=== PATIENT | female | born 1980 | race Caucasian/White ===

== ENCOUNTER 2017-04-18 16:25 | Inpatient (IN) | payer MEDICAID ==
[2017-04-18 19:00] VITALS: BP 112/67
[2017-04-18 21:45] LABS: BASOPHILS 0.1 % (0-2); EOSINOPHILS 0.7 % (0-7); HEMATOCRIT 41.4 % (36.0-48.0); IMMATURE GRANULOCYTES 0.2 % (0-5); LYMPHOCYTES 19.3 % (15-50); MCH 34.5 pg (26.0-34.0); MCHC 36.2 g/dL (31.0-37.0); MCV 95.2 fL (80.0-100.0); MEAN PLATELET VOLUME 9.2 fL (7.4-10.4); MONOCYTES 8.3 % (2-11); NEUTROPHILS 71.4 % (40-80); PLATELET COUNT 222 10x3/uL (130-400); RBC 4.35 10x6/uL (4.00-5.40); RDW 11.5 % (11.5-14.5); WBC 13.5 10x3/uL (4.8-10.8)
[2017-04-18 22:25] LABS: ALBUMIN 3.7 g/dL (3.4-5.0); ALKALINE PHOSPHATASE 82 U/L (46-116); ALT (SGPT) 27 U/L (10-68); BILIRUBIN - TOTAL 0.68 mg/dL (0.2-1.3); CALC OSMOLALITY 272 mosm/kg (275-300); CALCIUM 9.3 mg/dL (8.5-10.1); CARBON DIOXIDE 29.6 mmol/L (21.0-32.0); CHLORIDE - SERUM 99 mmol/L (98-107); CREATININE - SERUM 0.8 mg/dL (0.6-1.3); GLUCOSE 100 mg/dL (74-106); POTASSIUM - SERUM 3.9 mmol/L (3.5-5.1); PROTEIN - SERUM 6.9 g/dL (6.4-8.2); SODIUM 137 mmol/L (136-145); UREA NITROGEN 10 mg/dL (7-18); eGFR NON AFRICAN AMERICAN 86 mL/min (90-120)
[2017-04-19 04:00] VITALS: BP 94/50
[2017-04-19 08:33] VITALS: BP 92/44
[2017-04-19 12:03] VITALS: BP 90/33
[2017-04-19 16:02] VITALS: BP 95/52
[2017-04-19 22:00] VITALS: BP 104/64
[2017-04-20 06:10] LABS: BASOPHILS 0.2 % (0-2); EOSINOPHILS 3.4 % (0-7); HEMOGLOBIN 12.3 g/dL (12-16); LYMPHOCYTES 34.6 % (15-50); MCH 34.2 pg (26.0-34.0); MCHC 35.1 g/dL (31.0-37.0); MEAN PLATELET VOLUME 9.2 fL (7.4-10.4); MONOCYTES 15.9 % (2-11); NEUTROPHILS 45.9 % (40-80); PLATELET COUNT 183 10x3/uL (130-400); RDW 11.6 % (11.5-14.5)
[2017-04-20 06:16] LABS: MCV 97.2 fL (80.0-100.0); WBC 5.5 10x3/uL (4.8-10.8)
[2017-04-20 06:28] LABS: CALC OSMOLALITY 270 mosm/kg (275-300); CALCIUM 8.1 mg/dL (8.5-10.1); CARBON DIOXIDE 26.9 mmol/L (21.0-32.0); CHLORIDE - SERUM 103 mmol/L (98-107); CREATININE - SERUM 0.7 mg/dL (0.6-1.3); GLUCOSE 113 mg/dL (74-106); SODIUM 136 mmol/L (136-145); eGFR NON AFRICAN AMERICAN > 90 mL/min (90-120)
[2017-04-20 06:30] LABS: UREA NITROGEN 7 mg/dL (7-18)
[2017-04-20 06:45] VITALS: BP 92/51
[2017-04-20 08:28] VITALS: BP 92/52
[2017-04-20 12:48] VITALS: BP 90/42
[2017-04-20 16:09] VITALS: BP 103/59
[2017-04-20 23:00] VITALS: BP 100/64
[2017-04-21 06:23] VITALS: BP 95/56
[2017-04-21 07:47] LABS: BASOPHILS 0.2 % (0-2); EOSINOPHILS 3.7 % (0-7); HEMATOCRIT 38.5 % (36.0-48.0); HEMOGLOBIN 13.4 g/dL (12-16); IMMATURE GRANULOCYTES 0.2 % (0-5); MCH 34.2 pg (26.0-34.0); MCHC 34.8 g/dL (31.0-37.0); MCV 98.2 fL (80.0-100.0); MONOCYTES 11.4 % (2-11); NEUTROPHILS 45.5 % (40-80); PLATELET COUNT 201 10x3/uL (130-400); RBC 3.92 10x6/uL (4.00-5.40); RDW 11.8 % (11.5-14.5); WBC 5.2 10x3/uL (4.8-10.8)
[2017-04-21 07:57] LABS: CALC OSMOLALITY 280 mosm/kg (275-300); CALCIUM 8.7 mg/dL (8.5-10.1); CARBON DIOXIDE 30.1 mmol/L (21.0-32.0); CHLORIDE - SERUM 106 mmol/L (98-107); CREATININE - SERUM 0.7 mg/dL (0.6-1.3); GLUCOSE 117 mg/dL (74-106); POTASSIUM - SERUM 4.6 mmol/L (3.5-5.1); SODIUM 141 mmol/L (136-145); eGFR NON AFRICAN AMERICAN > 90 mL/min (90-120)
[2017-04-21 08:00] VITALS: BP 103/43
[2017-04-21 08:00] LABS: UREA NITROGEN 9 mg/dL (7-18)
[2017-04-21 12:00] VITALS: BP 90/56
[2017-04-21] MEDS ORDERED: LEVAQUIN500 MG PO ×2 (14:21→14:57)
[2017-04-21] MEDS ORDERED: FLAGYL500 MG PO ×2 (14:21→14:57)
== END 2017-04-21 15:56 | disposition home or self-care (01) | DRG 872 ==
LOC: D.CT 16:25 → D.M2 18:21 → OBSVTIME 18:21 → D.M2 18:21
PROVIDERS: Internal Medicine Nephrology
DX: A41.9 Sepsis, unspecified organism (principal); K57.92 Diverticulitis of intestine, part unspecified, without perforation or abscess without bleeding; K59.09 Other constipation; F41.9 Anxiety disorder, unspecified; F32.9 Major depressive disorder, single episode, unspecified; Z72.0 Tobacco use; Z91.19 Patient's noncompliance with other medical treatment and regimen

== ENCOUNTER 2020-01-30 06:20 | Day surgery (SDC) | payer MEDICAID ==
[2020-01-28 15:34] LABS: BASOPHILS 0.3 % (0-2); EOSINOPHILS 2.9 % (0-7); HEMATOCRIT 42.7 % (36.0-48.0); HEMOGLOBIN 14.7 g/dL (12-16); IMMATURE GRANULOCYTES 0.1 % (0-5); LYMPHOCYTES 33.7 % (15-50); MCH 33.9 pg (26.0-34.0); MCHC 34.4 g/dL (31.0-37.0); MCV 98.4 fL (80.0-100.0); MEAN PLATELET VOLUME 8.7 fL (7.4-10.4); MONOCYTES 9.8 % (2-11); NEUTROPHILS 53.2 % (40-80); PLATELET COUNT 232 10x3/uL (130-400); RBC 4.34 10x6/uL (4.00-5.40); WBC 7.3 10x3/uL (4.8-10.8)
[~2020-01-30] VITALS: Ht 154.9 cm; Wt 55.3 kg
[~2020-01-30 06:20] MED LIST: FLAGYL500 MG PO; GABAPENTIN100 MG PO; KLONOPIN1 MG PO; LEVAQUIN500 MG PO; PROZAC20 MG PO; VITAMIN D50000 UNI2 PO
[2020-01-30 07:56] VITALS: BP 104/80; Ht 154.9 cm; Wt 55.3 kg
[2020-01-30 08:13] LABS: HCG URINE NEGATIVE (NEGATIVE)
--- NOTE | 2020-01-30 12:34 | NUR ---
1055 VOIDED 1055 MEDICATED X1 CRAMPS 1110 IV REMOVED AND PRESSURE HELD. 1120 D/C HOME
--- NOTE | 2020-02-02 07:04 | OP ---
PATIENT NAME: DEJA KENNY MEDICAL RECORD: [id number] :84 LOCATION:D.OPS ADMISSION DATE: SURGEON: RICARDO SHAH MD DATE OF OPERATION: 01/30/2020 PREOPERATIVE DIAGNOSES: 1. Menorrhagia. 2. IUD placement. POSTOPERATIVE DIAGNOSES: 1. Menorrhagia. 2. IUD placement. PROCEDURE: Hysteroscopic removal of IUD, hysteroscopy, dilation and curettage. SURGEON: Ricardo Shah MD ANESTHESIA: General endotracheal. INTRAVENOUS FLUIDS: Per anesthesia records. HYSTEROSCOPIC FLUID LOSS: 50 mL. ESTIMATED BLOOD LOSS: Minimal. FINDINGS: 1. Grossly normal-appearing external genitalia and cervix. 2. IUD strings not noted at cervical os. 3. IUD noted to be properly placed with retracted strings. 4. Grossly normal-appearing proliferative endometrium. COMPLICATIONS: None apparent. SPECIMENS: Endometrial curettings. DESCRIPTION OF PROCEDURE: The patient was taken to the operating room where general anesthesia was achieved without any difficulty. The patient was prepped and draped in normal sterile fashion in the dorsal lithotomy position in the [facility]. At this point, the bladder was drained of approximately 100 mL of straw-colored urine. At this point, a Graves speculum was placed into the vagina and a single-tooth tenaculum was placed on the anterior lip of the cervix. As mentioned, the IUD strings were not noted. The hysteroscope was then placed 5 mm into the external cervical os. At this point, the IUD strings were noted. A hysteroscopic grasper was then used to remove the IUD without difficulty. Dilation was then performed to approximately 6 mm and the hysteroscope was replaced into the uterus. Survey of the uterus was then performed, hysteroscope was then removed, and fractional curetting was performed of all 4 quadrants. Minimal bleeding was noted following the curetting. Tenaculum was removed and then the speculum. The patient tolerated the procedure well and was transported to postanesthesia recovery stable without incident. NTS:[id number] Voice Confirmation ID: [id number] DOCUMENT ID: [id number] OPERATIVE REPORT [id number] DEJA KENNY RICARDO SHAH MD at 0704 CC: [id number] DICTATION DATE: 01/30/20 1129 [place] OPERATOR: 01/30/202052 [facility] 01/30/20 [facility] [address] [facility] [address]
== END 2020-01-30 11:20 | disposition home or self-care (01) ==
LOC: D.OPS 06:20
PROVIDERS: ATTEND Obstetrics & Gynecology
DX: N92.0 Excessive and frequent menstruation with regular cycle (principal); N94.10 Unspecified dyspareunia

== ENCOUNTER → 2020-07-12 12:57 | Day surgery (SDC) | payer MEDICAID ==
[2020-01-30 07:56] VITALS: BMI 23.1
--- NOTE | 2020-07-09 14:11 | NUR ---
ATTEMPTED TO CONFIRM PT APPT FOR SUNDAY. VOICEMAIL SAID BOX TOO FULL TO LEAVE MESSAGE.
--- NOTE | ~2020-07-12 | HEMODYNAMI ---
PATIENT:DEJA KENNY MEDICAL RECORD: [id number] : 84 LOCATION:[facility] ADMISSION DATE: 07/12/20 Generatedon:113:30 Patient name: DEJA KENNY Patient #: [id number] SSN: DO B: 1980 Date of study: 07/12/2020 Page: Of Hemodynamic Procedure Report Patient Data Patient Demographics Procedure consent was obtained First Name: DEJA Gender: Female Last Name: ZOYA : 1980 Middle Initial: N Age: 40 year(s) Patient #: [id number] Race: Unknown Additional ID: [id number] Contact details [address]: [address] [place] [address] State: [place] City: [place] Zip code: [address] Admission Admission Data Admission Date: 07/12/2020 Admission Time: 12:57 Procedure Procedure Types Cath Procedure Peripheral Cath Diagnostic Procedure Miscellaneous Aspiration/Injection (Joint) Procedure Description Procedure Date Procedure Date: 07/12/2020 Procedure Start Time: 13:23 Procedure Staff Name Function Camryn Guillory MD Performing Physician Lorne Henriquez RT Monitor Procedure Data Cath Procedure Fluoroscopy Diagnostic fluoroscopy Total fluoroscopy Time: 0.1 time: 0.1 min min Diagnostic fluoroscopy Total fluoroscopy dose: 1 dose: 1 mGy mGy Hemodynamics Rest Pre Cath Intra NCS Post Cath Procedure Log Time Note 13:18:21 Lorne Henriquez RT (R) (CV) sent for patient. Start room use. 13:18:41 Patient received from Other to IR Alert and oriented. Tansferred to table in Supine position. 13:18:44 Signed procedure consent form obtained from patient. 13:18:45 Correct patient and procedure confirmed by team. 13:18:46 Full Disclosure recording started 13:18:47 - 13:18:48 Pre-procedure instructions explained to patient. 13:18:48 Pre-op teaching completed and patient verbalized understanding. 13:18:51 Was the patient premedicated? No 13:19:05 PATIENT STATES NO ALLERGIES 13:19:11 SAFE-T PLUS MYELOGRAM TRAY opened to sterile field. 13:19:37 Is patient on blood thinner?No 13:19:40 - 13:19:51 Right Hip was prepped with betadine and draped in sterile fashion. 13:21:59 Physician arrived 13:22:01 --------ALL STOP TIME OUT------ 13:22:01 Final Timeout: patient, procedure, and site verified with staff and physician. All members of the team are in agreement. 13:22:07 Right groin site verified by team. 13:22:21 Sedation plan: Local Anesthetic Medication:Lidocaine 13:22:56 Procedure started. 13:23:03 Local anesthetic to Right Hip with Lidocaine 1% by Camryn Guillory MD.INITIA L ACCESS ONLY 13:29:27 Procedure ended.(Physican Out) 13:29:32 Fluoroscopy time 00.10 minutes. 13:29:35 Fluoroscopy dose: 1 mGy 13:29:35 Flurop Dose total: 1 13:30:03 BANDAIDE APPLIED SITE STABLE PT SENT HOME Device Usage Item Name Manufacture Quantity Catalog Hospital Part Current Minimal Lot# / Number Charge Number Stock Stock Serial# Code SAFE-T [employer] 1 [id number] PLUS MYELOGRAM TRAY Signature Audit Nelson Stage Time Signature Unsigned Intra-Procedure 07/12/2020 Lorne 1:30:52 PM [facility] RT (R) () [facility] [address] [place] [address]
== END | disposition home or self-care (01) ==
LOC: D.SP 12:57 → D.RAD 12:57
PROVIDERS: ATTEND Orthopaedic Surgery
DX: M25.851 Other specified joint disorders, right hip (principal)

== ENCOUNTER 2020-08-27 09:03 | Day surgery (SDC) | payer MEDICAID ==
[~2020-08-27] VITALS: Ht 154.9 cm; Wt 56.2 kg
[~2020-08-27 09:03] MED LIST changes: +METHOCARBAMOL500 MG PO
[2020-08-27 10:31] VITALS: BP 103/63; Ht 154.9 cm; Wt 56.2 kg
[2020-08-27 11:12] LABS: HCG URINE NEGATIVE (NEGATIVE)
--- NOTE | 2020-08-27 16:35 | NUR ---
1435 PT DROSEY AND FALLS TO SLEEP EASILY. DOESNT APPEAR IN PAIN. NO VAGIANL BLEEDING. FRIEND AT BEDSIDE. OFFERED PT SOMETHING TO DRINK. 1440 PT ASLEEP AND SNORING. 1535 VS STABLE INSTRUCTIONS GIVEN, 1545 PT WOKE UP SUDDENLY WITH PAIN. OFFERED A PAIN PILL AND CRACKERS. 1555 PT ASLEEP AND SNORING BUT WHEN AWAKE SHE STATED SHE WAS IN PAIN, INFORMED PT WE WILL NOT BE ABLE TO GIVEN A PAIN PILL AT THIS TIME BECAUSE SHE CANT STAY AWAKE, 1600 IV REMOVED. AND PT ASSISTED IN W/C SHE STATED SHE WANTED TO GO VISIT HER DAD ON MED SURG. PT WHEELED TO UNIT.
--- NOTE | 2020-09-08 15:52 | OP ---
PATIENT NAME: DEJA KENNY MEDICAL RECORD: [id number] :84 LOCATION:D.OPS ADMISSION DATE: SURGEON: RICARDO SHAH MD DATE OF OPERATION: 08/27/2020 PREOPERATIVE DIAGNOSES: 1. Amenorrhea/menorrhagia cycling. 2. Suspected polycystic ovarian syndrome. 3. Endometrial polyps. POSTOPERATIVE DIAGNOSES: 1. Amenorrhea/menorrhagia cycling. 2. Suspected polycystic ovarian syndrome. 3. Endometrial polyps. PROCEDURE: Hysteroscopy, dilation and curettage, NovaSure endometrial ablation. SURGEON: Dr. Ricardo Shah ANESTHESIA: General endotracheal. INTRAVENOUS FLUIDS: Per anesthesia record. ESTIMATED BLOOD LOSS: Minimal. HYSTEROSCOPIC FLUID LOSS: Less than 100 ml of 0.9 normal saline. SPECIMENS: None. COMPLICATIONS: None apparent. FINDINGS: 1. Grossly normal external genitalia and cervix. 2. Proliferative appearing endometrium with occasional endometrial polyp. PROCEDURE: The patient was taken to the operating room where general anesthesia was achieved without difficulty. The patient was then prepped and draped in normal sterile fashion in the dorsal lithotomy position in the [facility]. At this point, the bladder was drained of approximately 100 cc of clear yellow urine. A Graves speculum was placed into the vagina. Cervix was grasped on its anterior lip with a single tooth tenaculum. The patient was sounded to approximately 9.5 cm. Dilation was performed to approximately 6 mm using the dilators and the hysteroscope was then introduced into the cervix. Survey of the endocervix and endometrial canal was then performed. Following the hysteroscope, the hysteroscope was then withdrawn and progressive Hegar dilators were used to dilate the patient to approximately 9 mm. At this time, the NovaSure endometrial ablative device was then calibrated following the cervical measurement and cavity depth measurement. Burn cycle of approximately 2 minutes was performed with excellent hemostasis over the wound. The patient was transferred to postanesthesia recovery stable without incident. At the end of the case following NovaSure endometrial ablative cycle, the NovaSure device was removed using the bow and arrow method and the tenaculum was then removed followed by the speculum. The patient tolerated the procedure well and was transported to postanesthesia recovery stable without incident. OPERATIVE REPORT [id number] DEJA KENNY TRANSINT:[id number] Voice Confirmation ID: [id number] DOCUMENT ID: [id number] RICARDO SHAH MD at 1552 CC: [id number] DICTATION DATE: 09/05/20 161 TRANSACTION COORDINATOR: 09/07/20 2304 [facility] 08/27/20 [facility] [address] [place] [address]
== END 2020-08-27 16:00 | disposition home or self-care (01) ==
LOC: D.OPS 09:03
PROVIDERS: ATTEND Obstetrics & Gynecology
DX: N91.2 Amenorrhea, unspecified (principal); N92.0 Excessive and frequent menstruation with regular cycle; N84.0 Polyp of corpus uteri; F41.9 Anxiety disorder, unspecified; M54.5 Low back pain; K57.92 Diverticulitis of intestine, part unspecified, without perforation or abscess without bleeding